=== PATIENT | female | born 1990 | race Caucasian/White ===

== ENCOUNTER 2018-02-02 07:49 | Outpatient (CLI) | payer OTHER | END 2018-02-02 07:50 | disposition home or self-care (01) | LOC: BICMRI 07:49 | PROVIDERS: ATTEND Family Medicine | DX: S93.402A Sprain of unspecified ligament of left ankle, initial encounter (principal); S93.492A Sprain of other ligament of left ankle, initial encounter; S93.412A Sprain of calcaneofibular ligament of left ankle, initial encounter; M79.89 Other specified soft tissue disorders ==